=== PATIENT | female | born 1955 | race American Indian/Alaskan Native ===

== ENCOUNTER 2017-05-29 09:04 | Day surgery (SDC) | payer OTHER ==
[~2017-05-29 09:04] MED LIST: WATER FOR IRRIG STERILE IR ONE; XYLOCAINE MPF 2% ONE
[2017-05-29] MEDS ORDERED: NACL 0.9% 1000 ML 1,000 ML IV SCH (10:00)
--- NOTE | 2017-05-29 11:01 | Anesthesia Consultation ---
Anesthesia Consult and Med Hx Date of service: 05/29/17 - Airway Anesthetic Teeth Evaluation: Good ROM Head & Neck: Adequate Mental/Hyoid Distance: Adequate Mallampati Class: Class II Intubation Access Assessment: Probably Good - Pulmonary Exam CTA: Yes - Cardiac Exam Cardiac Exam: RRR - Pre-Operative Health Status ASA Pre-Surgery Classification: ASA2 Proposed Anesthetic Plan: MAC (high cholesterol.) - Cardiovascular System Hx Valvular Heart Disease: Yes (mitral prolapse)
--- NOTE | 2017-05-29 11:02 | Anesthesia Day of Surgery ---
Anesthesia Day of Surgery - Day of Surgery Patient Examined: Yes Patient H&P Reviewed: Yes Patient is NPO: Yes
[2017-05-29] MEDS ORDERED: DIPRIVAN 10 MG/ML IV ONE ×2 (12:09→13:38)
[2017-05-29] MEDS ORDERED: WATER FOR IRRIG STERILE ONE (12:36)
[2017-05-29] MEDS ORDERED: XYLOCAINE 2% INFILTRATI ONE (13:42)
--- NOTE | 2017-05-29 14:11 | Operative Report ---
Operative Report Operative Report: Date of procedure: 05/29/2017 Procedure: Colonoscopy with Hot Biopsy Polypectomy. Attending physician: Chaitanya Skaggs MD Project Management Analyst: Chaitanya Skaggs MD Indication: Patient is a 62-year-old female who presents for colonoscopy for colorectal cancer screening. A colonoscopy serves to evaluate patient so that treatment may be directed based on the findings. Consent: Informed consent was obtained after advising the patient and family regarding nature of this procedure, its indications, potential benefits as well as possible complications including but not limited to bleeding perforation and adverse reaction to medication, infection as well as other cardiopulmonary complications. An informed written and verbal consent was then obtained after due opportunity was provided for questions and answers. Monitoring: Patient was monitored continuously with pulse oximetry and electrocardiographic recordings as well as blood pressure recordings. Vital signs remained stable throughout this procedure with no untoward events. Preoperative assessment: Patient was assessed immediately prior to this procedure for capacity to tolerate monitored anesthesia care and moderate sedation as well as general anesthesia. Patient's ASA classification is 2, Mallampati class is 2, Hyomental distance is 3. Instrument: SafeMedian video colonoscope Medications: Propofol given intravenously in divided doses. For details please refer to anesthesia records. Description of procedure: Patient was placed in the left lateral decubitus position after achieving sedation, a digital rectal examination was performed following which the colonoscope was introduced into the anal verge and advanced to the cecum which was identified by the ileocecal valve, the appendiceal orifice, as well as by the cecal strap and direct transillumination. The colonoscope was subsequently withdrawn with careful inspection of all mucosal surfaces. Patient tolerated this procedure well and was subsequently taken to the recovery room. The following findings were noted. Findings: The cecum was normal, the ascending colon was normal, the transverse colon was normal, the descending colon was normal, the sigmoid colon was normal. In the rectum, patient had 2 diminutive flat polyps which were removed by hot biopsy polypectomy. On the retroflex view at the anal verge, patient had internal hemorrhoids. Impression: Rectal polyps status post hot biopsy polypectomy. Internal hemorrhoids. Plan: Follow pathology report. High-fiber diet. Repeat colonoscopy in 5 years if polyps are adenomatous.
--- NOTE | 2017-05-29 14:12 | Discharge Summary ---
Short Stay Discharge Plan Weight Bearing Status: Weight Bear as Tolerated Diet: regular
--- NOTE | 2017-05-29 14:42 | Post Anesthesia Evaluation ---
- Post Anesthesia Evaluation Patient Participated: Yes Airway Patent: Yes Stable Respiratory Function: Yes Nausea/Vomiting: No Temp > 96.8F: Yes Pain Manageable: Yes Adequeate Hydration: Yes Anesthesia Complications: No Block Receding Appropriately: Not Applicable Patient on Ventilator: No
[2017-05-29 14:47] VITALS: BP 138/70
== END 2017-05-29 09:05 | disposition home or self-care (01) ==
LOC: GIO 09:04
PROVIDERS: ATTEND Internal Medicine Gastroenterology
DX: Z12.11 Encounter for screening for malignant neoplasm of colon (principal); K62.1 Rectal polyp; I34.1 Nonrheumatic mitral (valve) prolapse; Z88.0 Allergy status to penicillin; Z88.8 Allergy status to other drugs, medicaments and biological substances; Z82.49 Family history of ischemic heart disease and other diseases of the circulatory system
CPT/HCPCS: 45384; 88305; J2704; J7030